=== PATIENT | male | born 1940 ===

== ENCOUNTER 2017-12-25 09:41 | Emergency (ER) | payer MEDICARE, BC ==
--- NOTE | 2017-12-25 10:38 | UC ---
Lower Extremity/Ankle HPI - HPI Summary HPI Summary: pt has redness top of L 4th toe for 5 days, no known precipitant, yesterday he stood for a long time and L foot became swollen. toe is swollen and, red, and painful. no hx gout, has tried no treatment thus far - History of Current Complaint Chief Complaint: UCLowerExtremity Stated Complaint: foot complaint Time Seen by Provider: 12/25/17 10:01 Hx Obtained From: Patient Onset/Duration: Gradual Onset Severity Initially: Mild Severity Currently: Moderate Pain Intensity: 6 Alleviating Factor(s): Rest Able to Bear Weight: Yes - Risk Factors Gout Risk Factors: Age Over 40, Male, Hypertension - Allergies/Home Medications Allergies/Adverse Reactions: Allergies Allergy/AdvReac Type Severity Reaction Status Date / Time No Known Allergies Allergy Verified 12/25/17 09:56 Home Medications: Home Medications Lisinopril 20 mg PO 12/25/17 [History] PMH/Surg Hx/FS Hx/Imm Hx Previously Healthy: Yes Cardiovascular History: Hypertension - Surgical History Surgical History: None - Family History Known Family History: Positive: None - Social History Occupation: Retired Lives: With Family Alcohol Use: None Substance Use Type: None Smoking Status (MU): Never Smoked Tobacco Review of Systems Constitutional: Negative Respiratory: Negative Cardiovascular: Negative Neurovascular: Negative Psychological: Negative All Other Systems Reviewed And Are Negative: Yes Physical Exam Triage Information Reviewed: Yes Appearance: Well-Appearing, No Pain Distress, Well-Nourished Vital Signs: Initial Vital Signs Temp 98.1 F 12/25/17 09:54 Pulse 77 12/25/17 09:54 Resp 18 12/25/17 09:54 BP 164/87 12/25/17 09:54 Pulse Ox 97 12/25/17 09:54 Vital Signs Reviewed: Yes Respiratory Exam: Normal Cardiovascular Exam: Normal Cardiovascular: Positive: Pulses Normal, Brisk Capillary Refill Musculoskeletal: Positive: Strength Intact, ROM Intact, Edema @ - dorsal L foot , 4th toe erythemic and tender, no drainage, minor redness extends from toe to foot Neurological Exam: Normal Psychological Exam: Normal Skin Exam: Normal Skin: Negative: rashes Lower Extremity Course/Dx - Differential Dx/Diagnosis Differential Diagnosis/HQI/PQRI: Arthritis, Cellulitis, Gout, Infection Provider Diagnoses: cellulitis L 4th toe Discharge - Sign-Out/Discharge Documenting (check all that apply): Discharge/Admit/Transfer - Discharge Plan Condition: Stable Disposition: HOME Prescriptions: Cefdinir cap (NF) [Cefdinir 300 MG cap (NF)] 300 mg PO BID #20 cap Indomethacin CAP* [Indocin CAP*] 25 mg PO TID #12 cap Referrals: Baldemar LESTER,Jesus Solis [Primary Care Provider] - 2 Days (if no better) Additional Instructions: elevate L foot as much as possible take medications as directed and report to ER if symptoms worsen at any time - Billing Disposition and Condition Condition: STABLE Disposition: Home
== END 2017-12-25 10:48 | disposition home or self-care (01) ==
LOC: UCEAST 09:41
DX: L03.032 Cellulitis of left toe (principal)
CPT/HCPCS: 99202; G0463